=== PATIENT | male | born 1965 | race Hispanic/Latino ===

== ENCOUNTER 2021-07-04 15:04 | Emergency (ER) | payer SELFPAY ==
--- NOTE | 2021-07-04 17:19 | Emergency Department Report ---
ED Upper Extremity Inj HPI - General Stated Complaint: EXTREMITY INJURY Time Seen by Provider: 07/04/21 17:19 - History of Present Illness Initial Comments: Patient is a [id number] gentleman the presents with a several day history of left hand pain and swelling. He was trying to take a screw out of some wood. He broke the head off of the screw and then accidentally punctured his finger on the left hand. This was his index finger. He has had increasing pain and swelling that is now involving the entire hand. The pain radiates up the left forearm. He has no injury to left forearm. Pain is described as aching and constant. It is worse with movement and palpation. He has not been elevating. He has not been icing. He did try Tylenol. That did not help. He came here for evaluation. He is not sure when his last tetanus shot occurred. Again, he is right-hand dominant. - Related Data Previous Rx's Medication Instructions Recorded Last Taken Type Ibuprofen [Motrin] 800 mg PO Q8HR PRN #30 tablet 07/04/21 Unknown Rx cephALEXin [Keflex] 500 mg PO Q8HR #30 cap 07/04/21 Unknown Rx Allergies Allergy/AdvReac Type Severity Reaction Status Date / Time No Known Allergies Allergy Verified 07/04/21 17:25 ED Review of Systems ROS: Stated complaint: EXTREMITY INJURY Other details as noted in HPI Comment: All other systems reviewed and negative Constitutional: denies: fever Eyes: denies: vision change ENT: denies: throat pain Respiratory: denies: cough Cardiovascular: denies: chest pain Endocrine: denies: unexplained weight loss Gastrointestinal: denies: abdominal pain Genitourinary: denies: dysuria Musculoskeletal: denies: back pain Skin: denies: rash Neurological: denies: headache Hematological/Lymphatic: denies: easy bruising ED Past Medical Hx - Past Medical History Previous Medical History?: No - Family History Family history: no significant - Medications Home Medications: Home Medications Medication Instructions Recorded Confirmed Last Taken Type Ibuprofen [Motrin] 800 mg PO Q8HR PRN #30 tablet 07/04/21 Unknown Rx cephALEXin [Keflex] 500 mg PO Q8HR #30 cap 07/04/21 Unknown Rx ED Physical Exam - General Limitations: No Limitations, Other (Pulse ox noted and normal) General appearance: alert, in no apparent distress - Head Head exam: Present: atraumatic, normocephalic - Eye Eye exam: Present: normal appearance, EOMI. Absent: scleral icterus - ENT ENT exam: Present: normal orophraynx, normal external ear exam - Neck Neck exam: Present: normal inspection. Absent: meningismus - Respiratory Respiratory exam: Present: normal lung sounds bilaterally. Absent: respiratory distress - Cardiovascular Cardiovascular Exam: Present: regular rate, normal rhythm - GI/Abdominal GI/Abdominal exam: Present: soft. Absent: tenderness - Extremities Exam Extremities exam: Present: normal capillary refill, other (Significant swelling to the entire left hand including all 5 digits. This involves the hand itself. There is erythema and warmth associated with this in the dorsum of the hand. Patient does not have pain with passive range of motion of the index finger. This is where the puncture wound is.). Absent: calf tenderness - Back Exam Back exam: Absent: CVA tenderness (R), CVA tenderness (L) - Neurological Exam Neurological exam: Present: alert, oriented X3, normal gait - Psychiatric Psychiatric exam: Present: normal affect, normal mood - Skin Skin exam: Present: warm, dry ED Course Vital Signs 07/04/21 17:22 Temperature 98.8 F Respiratory 16 Rate Blood Pressure 151/87 - Reevaluation(s) Reevaluation #1: 07/04/21 17:19 Antibiotics and splint were ordered - Procedure Description Procedures done: Procedure note: Splint application. Indication: Left hand cellulitis. Patient was placed in a volar splint using Ortho-Glass. This was done by the ED staff with my observation. After the splint was applied, patient has brisk capillary refill and good sensation. This did not appear to be too constrictive. Patient tolerated this without difficulty. There were no complications. Patient appeared to be neurovascularly intact. ED Medical Decision Making - Medical Decision Making Patient presents with a puncture wound to the left hand, index finger, and has evidence of a hand cellulitis. He does not have symptoms that suggest a fusiform cellulitis or passive tenosynovitis. He has been given antibiotics here. He has been splinted for comfort. He has been referred for outpatient evaluation. Tetanus booster was updated. This is his nondominant hand. We have had a discussion about follow-up. Critical Care Time: No Critical care attestation.: If time is entered above; I have spent that time in minutes in the direct care of this critically ill patient, excluding procedure time. ED Disposition Clinical Impression: Cellulitis of left hand Disposition: HOME / SELF CARE / HOMELESS Is pt being admited?: No Condition: Stable Instructions: Cellulitis, Adult Additional Instructions: Wear the splint. Ice and elevate. Take all of the antibiotics. Follow-up with the referral physician as directed. Return for any problems or concerns. Prescriptions: cephALEXin [Keflex] 500 mg PO Q8HR #30 cap Ibuprofen [Motrin] 800 mg PO Q8HR PRN #30 tablet PRN Reason: Pain, Moderate (4-6) Referrals: LAUREN LOVE MD [Staff Physician] - 3-5 Days
[2021-07-04] MEDS ORDERED: TETANUS,DIPH,PERTUSS(ACELL) VACCINE 0.5 ML SYRINGE IM ONE (17:20)
[2021-07-04] MEDS ORDERED: KETOROLAC 30 MG/1 ML INJ IV ONE (17:20)
[2021-07-04 20:13] VITALS: BP 105/64
== END 2021-07-04 19:40 | disposition home or self-care (01) ==
LOC: ED 15:04
DX: L03.114 Cellulitis of left upper limb (principal)
CPT/HCPCS: 29125; 90715; 96365; 96375; 99282; J0690; J1885

== ENCOUNTER 2021-07-14 10:42 | Emergency (ER) | payer SELFPAY | END 2021-07-14 16:00 | disposition left against medical advice (07) | LOC: ED 10:42 | DX: Z02.1 Encounter for pre-employment examination (principal); Z53.21 Procedure and treatment not carried out due to patient leaving prior to being seen by health care provider ==